=== PATIENT | male | born 1965 | race Caucasian/White ===

== ENCOUNTER 2017-11-08 10:58 | Day surgery (SDC) | payer MEDICARE ==
[~2017-11-08] VITALS: Ht 177.8 cm; Wt 137.5 kg
[2017-11-08] MEDS ORDERED: LACTATED RINGERS 1,000 ML IV SCH (11:52)
[2017-11-08] MEDS ORDERED: ALBU8.5H8 INH (11:58)
[2017-11-08] MEDS ORDERED: SIMV20TA3 PO (11:58)
[2017-11-08] MEDS ORDERED: FLUT1BLS3 INH (11:58)
[2017-11-08] MEDS ORDERED: PANT40TA5 PO (11:58)
[2017-11-08] MEDS ORDERED: ASPI-496 PO (11:58)
[2017-11-08 12:03] VITALS: BP 133/90
[2017-11-08] MEDS ORDERED: LIDOCAINE-MPF 2% ,5ML ONE (12:52)
[2017-11-08] MEDS ORDERED: SUCCINYLCHOLINE 20 MG/ML, 10ML ONE (12:52)
[2017-11-08] MEDS ORDERED: PROPOFOL 10 MG/ML, 20ML ONE (12:52)
[2017-11-08] MEDS ORDERED: LABETALOL 5MG/ML, 20ML ONE (12:52)
[2017-11-08] MEDS ORDERED: OXYcodone 5 MG/5 ML ORAL.SOL UDC PO PRN (13:30)
[2017-11-08] MEDS ORDERED: hydrALAzine 20 MG/ML, 1ML IV PRN (13:30)
[2017-11-08] MEDS ORDERED: LABETALOL 5MG/ML, 20ML IV PRN (13:30)
[2017-11-08] MEDS ORDERED: FENTANYL PF 100 MCG/2ML IV PRN (13:30)
== END 2017-11-08 14:45 | disposition home or self-care (01) ==
LOC: OUT 10:58
PROVIDERS: ATTEND Internal Medicine Gastroenterology
DX: K29.00 Acute gastritis without bleeding (principal); K22.2 Esophageal obstruction; K25.9 Gastric ulcer, unspecified as acute or chronic, without hemorrhage or perforation; K29.80 Duodenitis without bleeding; J44.9 Chronic obstructive pulmonary disease, unspecified; E78.00 Pure hypercholesterolemia, unspecified; G47.30 Sleep apnea, unspecified; Z88.0 Allergy status to penicillin; Z88.8 Allergy status to other drugs, medicaments and biological substances; Z87.891 Personal history of nicotine dependence; Z79.82 Long term (current) use of aspirin; Z79.899 Other long term (current) drug therapy
CPT/HCPCS: 88305; 93005; J2704; J3490; J0330; J7120